=== PATIENT | male | born 1930 | race Caucasian/White ===

== ENCOUNTER 2016-02-25 07:10 | Emergency (ER) | payer MEDICARE ==
[~2016-02-25] VITALS: Ht 185.4 cm; Wt 100.0 kg
[~2016-02-25 07:10] MED LIST: 1-ME1LIQ PO; ASPI325T PO; B-1210005 PO; CHOL1CAP6 PO; FISH1000 PO; FOLI1TAB PO; FURO1TAB93 PO; HYDR12.56 PO; LISI-363 PO; METR250 PO; OMEP20TA PO; POTA-243 PO; SAW160TA PO; SIMV40TA PO; SOTA80TA PO; TAB-TAB PO
[2016-02-25 07:17] VITALS: BP 196/80; PULSE 54; RESP 18; TEMP 97; O2SAT 94
[2016-02-25] MEDS ORDERED: XARE10TA PO (07:36)
[2016-02-25] MEDS ORDERED: FURO20TA PO (07:36)
[2016-02-25] MEDS ORDERED: HYDR12.57 PO (07:36)
[2016-02-25] MEDS ORDERED: LISI2.5T3 PO (07:36)
[2016-02-25] MEDS ORDERED: SPIR25TA PO (07:36)
[2016-02-25] MEDS ORDERED: AMLO2.5T PO (07:36)
[2016-02-25] MEDS ORDERED: CEPH-460 PO (07:37)
--- NOTE | 2016-02-25 07:38 | PD ---
HPI Chief Complaint: Laceration/Skin Injury Time Seen by Provider: 07:34 Travel History International Travel<30 days: No Contact w/Intl Traveler<30days: No Traveled to known affect area: No History of Present Illness HPI 85-year-old male presents to the emergency department for evaluation of a laceration to his abdomen that occurred just prior to arrival. Patient was opening a box with a box toe flanger stitchdowns when he slipped cutting his abdomen. Patient is currently on Xarelto. He has no active bleeding. He states his tetanus immunization is up-to-date. He denies any pain. Patient reports a history of hypertension, atrial fibrillation. He states he did not take his blood pressure medication this morning. Patient denies any other complaints at this time. 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) Cardiac Catheterization: Yes (2005-04 STENTS) Cardiovascular Problems: Yes (CARDIAC STENT, BYPASS SURGERY 1976) High Cholesterol: Yes Chemotherapy: No Chest Pain: Yes Congestive Heart Failure: Yes COPD: No Diabetes: No Diminished Hearing: No Endocrine: No Gastrointestinal Disorders: Yes GERD: No Glaucoma: No Genitourinary: Yes Hepatitis: No Hiatal Hernia: No Hypertension: Yes Immune Disorder: No Kidney Stones: No Musculoskeletal: No Neurologic: No Psychiatric: No Reproductive: No Respiratory: Yes (CONGESTIVE HEART FAILURE) Myocardial Infarction: No Radiation Therapy: No Renal Failure: No Sleep Apnea: No Thyroid Disease: No Ulcer: No PNEUMOCCOCAL Vaccine (Year): 1 Past Surgical History Abdominal Surgery: Yes (2006 APPENDECTOMY) Appendectomy: Yes Cardiac Surgery: Yes (HEART BY-PASS 79', CARDIAC STENTS) Cholecystectomy: No Coronary Artery Bypass Graft: Yes (X1 VESSEL IN 1976) Coronary Stent: Yes Ear Surgery: No Endocrine Surgery: No Eye Surgery: Yes (BILATERAL CATARACT SX) Genitourinary Surgery: No Gynecologic Surgery: No Oral Surgery: No Pacemaker: No Thoracic Surgery: No Other Surgery: Yes (FACE LIFT) Social History Alcohol Use: No Tobacco Use: No Substance Use: No Allergies-Medications (Allergen,Severity, Reaction): Coded Allergies: Morphine (Verified Adverse Reaction, Intermediate, COMBATIVE, 02/25/16) Reported Meds & Prescriptions Reported Meds & Active Scripts Active Keflex (Cephalexin) 500 Mg Cap 500 Mg PO Q8H 10 Days Reported Amlodipine (Amlodipine Besylate) 2.5 Mg Tab 2.5 Mg PO DAILY Hydrochlorothiazide 12.5 Mg Cap 12.5 Mg PO BID Furosemide 20 Mg Tab 20 Mg PO BID Lisinopril 2.5 Mg Tab 2.5 Mg PO DAILY Spironolactone 25 Mg Tab 12.5 Mg PO DAILY Xarelto (Rivaroxaban) 10 Mg Tab 10 Mg PO DAILY Review of Systems Except as stated in HPI: all other systems reviewed are Neg Physical Exam Narrative GENERAL: Well-developed well-nourished male patient, ambulatory. Afebrile. SKIN: Warm and dry. Patient has a 2 cm superficial laceration to the right abdomen. I'm able to visualize the base of the wound and this is a superficial wound. No active bleeding. HEAD: Normocephalic. Atraumatic. EYES: No scleral icterus. No injection or drainage. NECK: Supple, trachea midline. No JVD or lymphadenopathy. CARDIOVASCULAR: Regular rate and rhythm without murmurs, gallops, or rubs. RESPIRATORY: Breath sounds equal bilaterally. No accessory muscle use. Lungs sounds are clear to auscultation. GASTROINTESTINAL: Abdomen soft, non-tender, nondistended. No abdominal pain to palpation. No pain around laceration. MUSCULOSKELETAL: No cyanosis, or edema. Data Data Last Documented VS Vital Signs Date Time Temp Pulse Resp B/P Pulse Ox O2 Delivery O2 Flow Rate FiO2 02/25/16 07:17 97.0 54 18 196/80 94 Orders Lidocai-Epi 1%-1:100,000 Inj (Xylocaine- (02/25/16 07:45) MDM Medical Decision Making Medical Screen Exam Complete: Yes Emergency Medical Condition: Yes Medical Record Reviewed: Yes Differential Diagnosis Superficial laceration versus intra-abdominal injury versus abrasion Narrative Course 85-year-old male presents to the emergency department for evaluation of a laceration to his abdomen after opening a box with a box toe flanger stitchdowns. Upon inspection of the laceration, laceration is superficial and the base of the wound is easily visualized. There is no active bleeding and no pain to palpation. I do not suspect any intra-abdominal injury. The patient is agreeable. Patient's blood pressure is elevated upon arrival to the emergency department, but the patient did not take his blood pressure medication this morning. He denies any associated complaints. Patient gives verbal consent for laceration repair. He'll be discharged short-term prescription for Keflex. The patient is agreeable to this plan. Procedures Procedure Narrative LACERATION LOCATION: Abdomen LENGTH: 2 cm NUMBER OF STITCHES/AMMY: 3 simple interrupted sutures REPAIR: The area of the laceration was prepped with Betadine and sterilely draped. The laceration was infiltrated with 1% lidocaine with epinephrine. The wound was copiously irrigated and explored without evidence of foreign body, tendon injury or neurovascular injury. The wound was closed using 4-0 Prolene. This was a single layer repair. A sterile dressing was applied. The patient was advised to keep the dressing clean and dry. Patient tolerated the procedure well. Diagnosis Primary Impression: Laceration of abdomen Qualified Code: S31.119A - Laceration of abdomen, initial encounter Referrals: Primary Care Physician call for appointment Patient Instructions: Care For Your Stitches (ED), General Instructions, Laceration (ED) Additional Instructions: Clean laceration twice daily with soap and water and apply [id number] antibiotic ointment. Keep laceration clean and dry. No swimming or hot tubs. Take antibiotic as directed until gone. Suture removal in 10 days. You may follow up with a primary care physician or return to the emergency department for this. Return to the emergency department for any acute worsening of symptoms. Med/Other Pt SpecificInfo: Prescription(s) given Scripts Cephalexin (Keflex)500 Mg [id number] Mg PO Q8H 10 Days Ref 0 Prov:Olimpia Curran 02/25/16 Disposition: 01 DISCHARGE HOME Condition: Stable Olimpia Curran Feb 25, 2016 07:38
[2016-02-25] MEDS ORDERED: LIDOCAINE 1%/EPINEPHrine 1:100,000 SOLN 20 ML VIAL INFIL ONE (07:45)
== END 2016-02-25 08:12 | disposition home or self-care (01) ==
LOC: NEPB 07:10
DX: S31.119A Laceration without foreign body of abdominal wall, unspecified quadrant without penetration into peritoneal cavity, initial encounter (principal); I10 Essential (primary) hypertension; I48.91 Unspecified atrial fibrillation; E78.00 Pure hypercholesterolemia, unspecified; Z79.01 Long term (current) use of anticoagulants; Z85.828 Personal history of other malignant neoplasm of skin; Z86.79 Personal history of other diseases of the circulatory system; Z87.19 Personal history of other diseases of the digestive system; Z87.448 Personal history of other diseases of urinary system; W27.8XXA Contact with other nonpowered hand tool, initial encounter
CPT/HCPCS: 12001

== ENCOUNTER 2017-07-10 09:57 | Emergency (ER) | payer MEDICARE ==
[~2017-07-10] VITALS: Ht 182.9 cm; Wt 94.0 kg
[~2017-07-10 09:57] MED LIST changes: -1-ME1LIQ PO; +AMLO2.5T PO; -ASPI325T PO; -B-1210005 PO; +CEPH-460 PO; -CHOL1CAP6 PO; -FISH1000 PO; -FOLI1TAB PO; -FURO1TAB93 PO; +FURO20TA PO; -HYDR12.56 PO; +HYDR12.57 PO; -LISI-363 PO; +LISI2.5T3 PO; -METR250 PO; -OMEP20TA PO; -POTA-243 PO; -SAW160TA PO; -SIMV40TA PO; -SOTA80TA PO; +SPIR25TA PO; -TAB-TAB PO; +XARE10TA PO
[2017-07-10 10:03] VITALS: BP 176/79; PULSE 57; RESP 16; TEMP 97.3; O2SAT 95
[2017-07-10] MEDS ORDERED: OMEP20TA93 PO (10:36)
[2017-07-10] MEDS ORDERED: POTA1TAB4 PO (10:36)
[2017-07-10] MEDS ORDERED: ZOCO40TA PO (10:36)
[2017-07-10] MEDS ORDERED: DOXY100C PO (10:53)
[2017-07-10] MEDS ORDERED: MUPI2OIN TOPICAL (10:53)
--- NOTE | 2017-07-10 10:53 | PD ---
HPI Chief Complaint: Skin Problem Time Seen by Provider: 10:21 Travel History International Travel<30 days: No Contact w/Intl Traveler<30days: No Traveled to known affect area: No History of Present Illness HPI 87-year-old male here with a fluid-filled blister to his right lower extremity. He noticed the area yesterday. He reports it is in the same location of where he had cellulitis in the past. He denies fever or chills. Mild tenderness at the site. Symptom severity is mild. No aggravating or alleviating factors. He is being applying bacitracin to the area and covering with a dressing. 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) Cardiac Catheterization: Yes Cardiovascular Problems: Yes (CARDIAC STENT, BYPASS SURGERY 1976) High Cholesterol: Yes Chemotherapy: No Chest Pain: Yes Congestive Heart Failure: Yes COPD: No Diabetes: No Diminished Hearing: No Endocrine: No Gastrointestinal Disorders: Yes GERD: No Glaucoma: No Genitourinary: Yes Hepatitis: No Hiatal Hernia: No Hypertension: Yes Immune Disorder: No Kidney Stones: No Musculoskeletal: No Neurologic: No Psychiatric: No Reproductive: No Respiratory: Yes (CONGESTIVE HEART FAILURE) Myocardial Infarction: No Radiation Therapy: No Renal Failure: No Sleep Apnea: No Thyroid Disease: No Ulcer: No Influenza Vaccination: Yes PNEUMOCCOCAL Vaccine (Year): 1 Past Surgical History Abdominal Surgery: Yes (2006 APPENDECTOMY) Appendectomy: Yes Cardiac Surgery: Yes (HEART BY-PASS 79', CARDIAC STENTS) Cholecystectomy: No Coronary Artery Bypass Graft: Yes (X1 VESSEL IN 1976) Coronary Stent: Yes (X3) Ear Surgery: No Endocrine Surgery: No Eye Surgery: Yes (BILATERAL CATARACT SX) Genitourinary Surgery: No Gynecologic Surgery: No Oral Surgery: No Pacemaker: No Thoracic Surgery: No Other Surgery: Yes (FACE LIFT) Social History Alcohol Use: No Tobacco Use: No Substance Use: No Allergies-Medications (Allergen,Severity, Reaction): Coded Allergies: morphine (Unverified Adverse Reaction, Intermediate, COMBATIVE, 07/10/17) Reported Meds & Prescriptions Reported Meds & Active Scripts Active Reported Omeprazole 20 Mg Tab 20 Mg PO DAILY K-Tab (Potassium Chloride) 20 Meq Tab 20 Meq PO BID Zocor (Simvastatin) 40 Mg Tab 40 Mg PO DAILY Amlodipine (Amlodipine Besylate) 2.5 Mg Tab 2.5 Mg PO DAILY Hydrochlorothiazide 12.5 Mg Cap 12.5 Mg PO BID Furosemide 20 Mg Tab 20 Mg PO BID Lisinopril 2.5 Mg Tab 2.5 Mg PO DAILY Xarelto (Rivaroxaban) 10 Mg Tab 10 Mg PO DAILY Review of Systems Except as stated in HPI: all other systems reviewed are Neg General / Constitutional: No: Fever Physical Exam Narrative GENERAL: Alert and well-appearing 87-year-old male SKIN: Warm and dry. 2x3 centimeters clear fluid-filled blister to the right posterior lower extremity with mild surrounding erythema at wound edges. No lymphangitis. HEAD: Normocephalic. EYES: No scleral icterus. No injection or drainage. NECK: Supple CARDIOVASCULAR: Regular rate and rhythm. No murmur appreciated RESPIRATORY: Breath sounds equal bilaterally. No accessory muscle use. GASTROINTESTINAL: Abdomen soft, non-tender, nondistended. MUSCULOSKELETAL: No cyanosis, symmetric nonpitting mild edema to bilateral ankles. Palpable DP pulses BACK: No CVA tenderness. Data Data Last Documented VS Vital Signs Date Time Temp Pulse Resp B/P (MAP) Pulse Ox O2 Delivery O2 Flow Rate FiO2 07/10/17 10:03 97.3 57 16 176/79 (111) 95 MDM Medical Decision Making Medical Screen Exam Complete: Yes Emergency Medical Condition: Yes Differential Diagnosis Superficial skin infection, venous stasis ulcer, cellulitis Narrative Course 87-year-old male here with superficial skin infection to the right lower extremity. He will be placed on doxycycline and Bactroban ointment. Wound care discussed. Return precautions discussed. Patient verbalized understanding and agrees to plan Diagnosis Primary Impression: Superficial skin infection Referrals: Primary Care Physician Additional Instructions: Antibiotics as directed. Apply thin layer of antibiotic ointment to the area with each dressing change. Return if he develop fever, increasing pain, increasing redness of the site. Scripts Mupirocin Topical (Mupirocin Topical) 2 % Oint 1 APPLIC TOPICAL BID for Mgmt Bacterial Infection, #22 GM 0 Refills Prov: Lili Ferraro 07/10/17 Doxycycline Hyclate (Doxycycline Hyclate) 100 Mg Cap 100 MG PO BID for Infection, #20 CAP 0 Refills Prov: Lili Ferraro 07/10/17 Disposition: 01 DISCHARGE HOME Condition: Stable Lili Ferraro July 10, 2017 10:53
== END 2017-07-10 11:07 | disposition home or self-care (01) ==
LOC: PHEFT 09:57
DX: L08.9 Local infection of the skin and subcutaneous tissue, unspecified (principal); I48.91 Unspecified atrial fibrillation; E78.00 Pure hypercholesterolemia, unspecified; I11.0 Hypertensive heart disease with heart failure; I50.9 Heart failure, unspecified; Z95.1 Presence of aortocoronary bypass graft; Z95.5 Presence of coronary angioplasty implant and graft
CPT/HCPCS: 99283

== ENCOUNTER 2018-02-20 06:50 | Observation (INO) ==
[~2018-02-20 06:50] MED LIST changes: -AMLO2.5T PO; -CEPH-460 PO; -FURO20TA PO; -HYDR12.57 PO; -LISI2.5T3 PO; -SPIR25TA PO; -XARE10TA PO; +ceFAZolin 2 GM IV; once IV.SIG SCH
[2018-02-20] MEDS ORDERED: Bupivacaine/Epinephrine PF Inj 0.5% 30 ML Vial ONE ×2 (07:00→09:37)
[2018-02-20] MEDS ORDERED: Metoprolol Tartrate 25 MG Tablet PO ONE (07:15)
[2018-02-20] MEDS ORDERED: Chlorhexidine Gluconate 2% 1 Pack (2 Cloths) TOPICAL ONE (07:15)
[2018-02-20] MEDS ORDERED: Sodium Chlor 0.9% Inj 500 ML IV.CONT ONE (07:15)
[2018-02-20] MEDS ORDERED: ceFAZolin 2 GM Premix Inj 2 GM/50 ML PIGGYBACK IV.SIG SCH (08:00)
[2018-02-20] MEDS ORDERED: fentaNYL Citrate Inj 250 MCG/5 ML Ampul ONE (09:32)
[2018-02-20] MEDS ORDERED: Bupivacaine Liposomal PF 1.3% Inj 20 ML Vial ONE ×2 (09:37→09:49)
[2018-02-20] MEDS ORDERED: Neostigmine Inj 5 MG/5 ML Syringe IV.PUSH ONE (09:50)
[2018-02-20] MEDS ORDERED: Ketorolac Inj 30 MG/ML (IVP) Vial IV.PUSH ONE (09:50)
[2018-02-20] MEDS ORDERED: Bupivacaine PF 0.5% Inj 30 ML Vial ONE (09:51)
[2018-02-20] MEDS ORDERED: Famotidine PF Inj 20 MG/2 ML Vial ONE (09:54)
[2018-02-20] MEDS ORDERED: Bupivacaine/Epinephrine Inj 0.25% 50 ML Vial ONE (10:35)
--- NOTE | 2018-02-20 13:25 | MP ---
cc: Bunny Wells MD DATE OF OPERATION: 02/20/2018 PREOPERATIVE DIAGNOSIS: Ventral incisional hernia. POSTOPERATIVE DIAGNOSIS: Ventral incisional hernia. PROCEDURE PERFORMED: Repair of ventral incisional hernia with Ventralight ST mesh. SURGEON: Bunny Wells MD. MOLD STAMPER AND REPAIRER: Wilbur Naylor MS-III. ANESTHESIA: General endotracheal. OPERATIVE FINDINGS: The patient was found to have multiple adhesions along the right lower abdominal wall from his previous operation. The adhesions were mainly between the omentum and the abdominal wall with a couple of loops of bowel laterally. There were multiple hernias with the largest one being at the lateral aspect of the incision and was approximately 4 cm wide x 7 cm long. There were several other smaller hernias in a Swedish cheese fashion medially toward the umbilicus. There was a very small not very deep umbilical hernia as well. No other abnormalities were noted. DESCRIPTION OF PROCEDURE: The patient was brought to the operating room, and after satisfactory general endotracheal anesthesia was obtained, the abdomen was prepped and draped in the usual sterile fashion. He underwent placement of a TAP block by Anesthesia after which the abdomen was prepped and draped sterilely again and covered with an Ioban drape; 0.25% Marcaine with epinephrine was used to infiltrate the skin for local anesthesia. A small incision was made in the left subcostal region and blunt dissection was carried out to enter the peritoneal cavity. A balloon tipped trocar was placed within the peritoneal cavity with the balloon, then being engaged. The abdomen was insufflated to 15 mmHg using carbon dioxide after which the camera was reinserted and visceral injury inspected for, with none being identified. Under direct visualization, two more 5 mm ports were placed in the left lateral aspect of the abdomen and 2 ports on the right side; all under direct visualization. The adhesions were taken down by grasping them and then dividing them with the Harmonic scalpel. The bowel was swept away from any area of concern and the remainder of the adhesions were taken down without problem, although it took almost an hour of dissection. The hernias were then identified and a 15 cm x 20 cm piece of mesh was selected. It was placed on the deployment system and then rolled and placed within the peritoneal cavity without problem. It was unfurled and the insufflation tubing was grasped. The exit site was selected based on measurements after the abdomen had been desufflated to 8 mmHg. The insufflation tubing was brought through a small defect in the anterior abdominal wall using a Dutton suture passer. It was inflated and the mesh brought within close approximation to the anterior abdominal wall where it was properly oriented without problem. With the mesh being held into place with a hemostat, it was tacked in several areas using AbsorbaTacks to secure it to the anterior abdominal wall. After has been secured circumferentially, the mesh backbone was removed and discarded without problem. The mesh was then completely tacked into place and was seen to cover the major abdominal wall defects from the hernias by at least 5 cm on all sides. The umbilical hernia was covered with the mesh as well, although it was only 2 cm inferior to the umbilical hernia, which had not been noted preoperatively. Hemostasis was checked for and the area of dissection. The mesh was checked and found to be intact circumferentially with good coverage of the hernias. The carbon dioxide was then vented as completely as possible in the atmosphere. The ports were then removed and the 12 mm fascial defect closed with interrupted 0-Vicryl suture and the skin closed with interrupted 4-0 PDS subcuticular stitches. Steri-Strips were applied. The patient was then awakened and taken from the operating room, in satisfactory condition, having tolerated the procedure without problem. ESTIMATED BLOOD LOSS: Less than 10 mL. COUNTS: The instrument, sponge, and needle counts were reported as being correct x 2 at the end of the procedure. MD AMBER Cardona/donovan , 01:02 PM , 01:15 PM
[2018-02-20] MEDS: Furosemide 40 MG Tablet PO SCH (22:07)
[2018-02-21] MEDS ORDERED: Pantoprazole Sodium 20 MG DR Tablet PO SCH (09:00)
[2018-02-21] MEDS ORDERED: Lisinopril 20 MG Tablet PO SCH (09:00)
[2018-02-21] MEDS ORDERED: amLODIPine 10 MG Tablet PO SCH (09:00)
[2018-02-21] MEDS: Furosemide 40 MG Tablet PO SCH (09:03)
== END 2018-02-21 11:50 | disposition home or self-care (01) ==
LOC: HSDI 06:50 → PHSDC 06:50
PROVIDERS: ADMIT Surgery; ATTEND Surgery